=== PATIENT | male | born 2000 | race Caucasian/White ===

== ENCOUNTER 2023-07-09 01:20 | Emergency (ER) | payer OTHER ==
[~2023-07-09] VITALS: Ht 172.7 cm; Wt 70.3 kg
[2023-07-09 01:25] VITALS: BP_SYST 103; PULSE 64; RESP 20; TEMP 97.3; O2SAT 97
[2023-07-09 01:45] VITALS: BP_SYST 103; PULSE 64; RESP 20; TEMP 97.3; O2SAT 97
[2023-07-09] MEDS ORDERED: LIDOCAINE 1% 10 MG/ML, 20 ML MDV INJ ONE (01:45)
[2023-07-09] MEDS ORDERED: DIPHTH,PERTUSS(ACELL),TET VAC 0.5 ML VIAL (Tdap) I.M. ONE (01:45)
[2023-07-09] MEDS ORDERED: BACITRACIN 1 GM OINT TP ONE ×2 (01:59→02:00)
== END 2023-07-09 02:10 | disposition home or self-care (01) ==
LOC: SED 01:20
DX: S61.211A Laceration without foreign body of left index finger without damage to nail, initial encounter (principal); Z79.899 Other long term (current) drug therapy; W26.0XXA Contact with knife, initial encounter; Y93.89 Activity, other specified; Y92.89 Other specified places as the place of occurrence of the external cause; Y99.8 Other external cause status
CPT/HCPCS: 90715; 99283; J2001